=== PATIENT | female | born 1980 | race Caucasian/White ===

== ENCOUNTER 2020-11-02 11:00 | Day surgery (SDC) | payer MEDICAID, SELFPAY ==
[2020-11-02] VITALS (7 sets, daily range): BP systolic 150–165; BP diastolic 76–97; PULSE 66–84; RESP 16; TEMP 36.1–36.4; O2SAT 96–100; BMI 62.9
[2020-11-02 11:32] LABS: Internal QC Validated? YES +Cl - CLEAR BKGD; Pregnancy, Urine Negative Negative
[2020-11-02] MEDS: Lactated Ringers 1,000 ML 100 ML IV (11:41)
--- NOTE | 2020-11-02 12:18 | RAD_ITS ---
PROCEDURE: Caudal block. DATE OF EXAMINATION: 11/02/2020. INDICATION: Female, 40 years old. Chronic back pain. FLUOROSCOPY TIME (if supplied): (11 seconds) minutes/seconds. Single lateral view. RAD/Fluor Guidance for Spine Inj IMPRESSION: Intraoperative imaging provided for caudal block. Electronically Signed: Frederick Finney MD at 15:34 EDT , Service support ,
[2020-11-02] MEDS: MethylPREDNISolone Acetate 80 MG/ML Vial (12:23)
[2020-11-02] MEDS: 0.9% Normal Saline (Pres. free 10 ML Vial (12:23)
[2020-11-02] MEDS: Lidocaine 1% (5 ml sdv) 5 ML Vial (12:23)
[2020-11-02] MEDS: Bupivacaine 0.25% 30 ML Vial (12:23)
--- NOTE | 2020-11-02 12:52 | PCM.OPRPT ---
Report of Operation Date of Procedure: 11/02/20 Description of Surgical Findings:: PREOPERATIVE DIAGNOSIS: Lumbosacral radiculopathy, lumbosacral degenerative disc disease, lumbosacral spinal stenosis POSTOPERATIVE DIAGNOSIS: Lumbosacral radiculopathy, lumbosacral degenerative disc disease, lumbosacral spinal stenosis PROCEDURE PERFORMED: Diagnostic/therapeutic caudal epidural steroid injection. ANESTHESIA: MAC. BLOOD LOSS: Minimal. COMPLICATIONS: None. DESCRIPTION OF PROCEDURE: History and physical of today was reviewed. Risks and benefits of the procedure were explained. The patient understood and agreed to proceed. Informed consent was obtained. IV inserted per routine protocol. The patient was taken to the operating room and placed in the prone position with a pillow positioned underneath the abdomen. The lower back and tailbone area was prepped and draped in a sterile fashion using iodine x3. Under fluoroscopy guidance on a lateral view, the caudal space was identified. The skin and subcutaneous tissue was anesthetized with approximately 3 mL of 1% lidocaine using a 25-gauge regular needle. Under direct visualization with fluoroscopy, using a 22-gauge 3-1/2-inch spinal needle, the needle was advanced via the skin through the sacral hiatus. The tip of the needle was passed through the sacrococcygeal ligament and advanced to approximately S4 area. After negative aspiration of blood or CSF, a total of 3 mL of contrast was injected to confirm correct placement of the needle as well as cephalad spread. The spread was followed to approximately L5 area. After confirmation on AP as well as lateral view and repeated negative aspiration, a total of 15 mL of preservative-free 0.125% Marcaine with 80 mg of Depo-Medrol was injected easily. The needle was then removed intact. The patient experienced no sign or symptoms of intrathecal or intravascular injection. The patient experienced no paresthesia. The procedure was completed without any apparent difficulty or any complications. The patient appeared to tolerate it well. ASSESSMENT AND PLAN: This is a 40-year-old female with lumbosacral radiculopathy, lumbosacral degenerative disc disease, lumbosacral spinal stenosis status post diagnostic/therapeutic caudal epidural steroid injection patient will continue her current medications, patient will follow in approximately 2 weeks for reevaluation.
== END 2020-11-02 13:35 | disposition home or self-care (01) ==
LOC: SDC 11:03 → AC 11:03
PROVIDERS: Anesthesiology; PCP Physician Assistant Medical; Referring Provider Anesthesiology Pain Medicine; Visit Provider Anesthesiology Pain Medicine
PROC: 3E0S3BZ Introduction of Anesthetic Agent into Epidural Space, Percutaneous Approach (ICD-10-PCS; CPT 62282; principal; 2020-11-02 11:45)
DX: M48.07 Spinal stenosis, lumbosacral region (principal); M51.17 Intervertebral disc disorders with radiculopathy, lumbosacral region; G89.29 Other chronic pain; K21.9 Gastro-esophageal reflux disease without esophagitis; E11.9 Type 2 diabetes mellitus without complications; G47.33 Obstructive sleep apnea (adult) (pediatric); F32.9 Major depressive disorder, single episode, unspecified; F41.9 Anxiety disorder, unspecified; F17.200 Nicotine dependence, unspecified, uncomplicated; M46.96 Unspecified inflammatory spondylopathy, lumbar region; Z79.899 Other long term (current) drug therapy
CPT/HCPCS: 64483; 77003; 81025; J7120; J3490

== ENCOUNTER → 2021-01-04 09:43 | Outpatient (CLI) | payer MEDICAID, SELFPAY ==
[2020-11-02 11:36] VITALS: BMI 62.9
[2021-01-04 11:45] LABS: Internal QC Validated? YES +Cl - CLEAR BKGD
[2021-01-04 11:49] VITALS: BP 142/85; PULSE 88; RESP 16; TEMP 36.4; O2SAT 96; BMI 62.4
[2021-01-04 11:51] LABS: Pregnancy, Urine Negative Negative
[2021-01-04] MEDS: Lactated Ringers 1,000 ML 100 ML IV (12:03)
== END ==
LOC: SDC 11:18 → PAT 01-14 09:43
PROVIDERS: Anesthesiology; PCP Physician Assistant Medical; Referring Provider Anesthesiology Pain Medicine; Visit Provider Anesthesiology Pain Medicine
DX: Z01.818 Encounter for other preprocedural examination (principal); M54.5 Low back pain; M51.37 Other intervertebral disc degeneration, lumbosacral region; M47.817 Spondylosis without myelopathy or radiculopathy, lumbosacral region; M54.17 Radiculopathy, lumbosacral region; M46.96 Unspecified inflammatory spondylopathy, lumbar region; Z79.899 Other long term (current) drug therapy; E11.9 Type 2 diabetes mellitus without complications; I10 Essential (primary) hypertension; G47.33 Obstructive sleep apnea (adult) (pediatric)
CPT/HCPCS: 81025; J7120

== ENCOUNTER 2021-03-08 14:16 | Day surgery (SDC) | payer MEDICAID, SELFPAY ==
[2021-01-04 11:49] VITALS: BMI 62.4
[2021-03-08] VITALS (7 sets, daily range): BP systolic 125–158; BP diastolic 74–98; PULSE 73–87; RESP 16; TEMP 35.7–36.3; O2SAT 97–100; BMI 66.0
[2021-03-08] MEDS: Lactated Ringers 1,000 ML 100 ML IV (14:51)
--- NOTE | 2021-03-08 16:26 | RAD_ITS ---
STUDY: X-RAY - LUMBAR SPINE REASON FOR EXAM: Female, 40 years old. Intraoperative procedural pattern indentation images of nerve block. TECHNIQUE: 6 intraoperative digital documentation view(s) of the lumbar spine were obtained. COMPARISON: None FINDINGS: 6 intraoperative digital documentation views were obtained. RAD/L/S Spine Min 4 Views IMPRESSION: Intraoperative digital documentation views. Electronically Signed: Simone Park MD at 10:55 EDT , Service support ,
[2021-03-08] MEDS: MethylPREDNISolone Acetate 80 MG/ML Vial (16:30)
[2021-03-08] MEDS: Bupivacaine 0.25% 30 ML Vial (16:30)
[2021-03-08] MEDS: Lidocaine 1% (5 ml sdv) 5 ML Vial (16:30)
--- NOTE | 2021-03-08 16:56 | PCM.OPRPT ---
Report of Operation Date of Procedure: 03/08/21 Description of Surgical Findings:: Original Note: Report of Operation Date of Procedure: 03/08/21 Pre-Operative Diagnosis: Lumbosacral spondylosis, lumbosacral degenerative disc disease, lumbar facet arthropathy Post-Operative Diagnosis: Lumbosacral spondylosis, lumbosacral degenerative disc disease, lumbar facet arthropathy PROCEDURE PERFORMED: Bilateral diagnostic lumbar medial branch block, L4, L5, and S1. ANESTHESIA: MAC. BLOOD LOSS: Minimal. COMPLICATIONS: None. DESCRIPTION OF PROCEDURE: History and physical of today was reviewed. Risks and benefits of the procedure were explained. The patient understood and agreed to proceed. Informed consent was obtained. IV inserted per routine protocol. The patient was taken to the operating room and placed in the prone position with a pillow positioned underneath the abdomen. The lower back area was prepped and draped in a sterile fashion using iodine x3. Under fluoroscopy guidance on AP view, the L4 through S1 vertebral bodies were visualized. The skin and subcutaneous tissue was anesthetized with approximately 5 mL of 1% lidocaine using a 25-gauge regular needle. Under direct visualization with fluoroscopy, at approximately 25-degree angle, starting on the left L4, ending on the right L4, passing through the L5 and S1 bilaterally, using a 22-gauge 3-1/2-inch spinal needle, the needle was advanced via the skin. The tip of the needle was maneuvered and directed towards the superior medial gutter of the transverse process at the vicinity of the medial branch. Once tip of the needle was in contact with the bone, the needle was pulled approximately 2 mm off the bone. After negative aspiration for blood or CSF and confirmation on AP, oblique as well as lateral view, a total of 12 mL of preservative-free 0.25% Marcaine was injected in divided doses between those six levels. The needles were then removed intact. The patient experienced no sign or symptoms of intrathecal or intravascular injection. The patient experienced no paresthesia. The procedure was completed without any apparent difficulty or any complications. The patient appeared to tolerate it well. ASSESSMENT AND PLAN: This is a 40-year-old female with lumbosacral spondylosis, lumbosacral degenerative disease, lumbar facet arthropathy, status post bilateral diagnostic lumbar medial branch block at L4-S1, patient will continue her current medications, patient will follow in approximately 1 week for reevaluation.
== END 2021-03-08 17:47 | disposition home or self-care (01) ==
LOC: SDC 14:17 → AC 14:18
PROVIDERS: PCP Physician Assistant Medical; Referring Provider Anesthesiology Pain Medicine; Visit Provider Anesthesiology Pain Medicine
PROC: 3E0T3BZ Introduction of Anesthetic Agent into Peripheral Nerves and Plexi, Percutaneous Approach (ICD-10-PCS; CPT 64493; principal; 2021-03-08 15:25)
DX: M47.816 Spondylosis without myelopathy or radiculopathy, lumbar region (principal); M47.817 Spondylosis without myelopathy or radiculopathy, lumbosacral region; M51.37 Other intervertebral disc degeneration, lumbosacral region; G47.33 Obstructive sleep apnea (adult) (pediatric); F41.9 Anxiety disorder, unspecified; F32.9 Major depressive disorder, single episode, unspecified; K21.9 Gastro-esophageal reflux disease without esophagitis; E11.9 Type 2 diabetes mellitus without complications; I10 Essential (primary) hypertension; M46.96 Unspecified inflammatory spondylopathy, lumbar region; Z79.899 Other long term (current) drug therapy
CPT/HCPCS: 64493; 64494; 64495; 64483; 72110; J7120

== ENCOUNTER 2021-05-10 09:42 | Day surgery (SDC) | payer MEDICAID, SELFPAY ==
[2021-03-08 14:41] VITALS: BMI 66.0
--- NOTE | 2021-05-06 10:40 | PCM.HP.BLA ---
History and Physical Date of Admission: 05/10/21 Chief Complaint: 80% improvement in the right lumbar History of Present Illness: This is a 48 Y/O female who was seen and evaluated at our office today as a follow up. Pain: lower back Quality: Intermittent Region: pain in lower back is more centered Severity: occasional stabbing Timin Aggravated by: walking, standing, and sitting too long Relieved by: laying or sitting down Pain score (out of 10): 0/10 Other info: Patient is here for a follow up-post RFA in the right lumbar spine decreased her pain by 80%.Reports the lower back is doing much better since the ablation.States when she stands for to long or walks far she still feels the stabbing pain.States she was pleased with the result of the ablation.States this has helped more than any procedure has in the past. Review of Systems: Patient denies any recent fever, chills, headache, change in weight without trying, vision or hearing problems. No cp, sob, long, pnd, orthopnea, or peripheral edema.They note no lumps or swollen glands, no new rashes, changing moles, or change in bowel or bladder function. Mood has been good overall. Past Medical History: h/o Arthritis h/o hypertension h/o kidney stones h/o seizure disorder h/o foot fracture h/o rt knee injury 09/27/20 h/o diabetes s/p Appendectomy s/p Lithotripsy s/p Caesarean section x2 s/p pradeep carpal tunnel release Family History: ======== Structured Family History ======== Father: Heart disease, Cancer, Hypertension, Arthritis Mother: Hypertension, Cancer Brother: Hypertension, Diabetes mellitus Sister: Hypertension, Diabetes mellitus Grandparent: Heart disease Social History: [Tobacco: Never smoker Pipe Smoker: No Cigar Smoker: No Chewing Tobacco User: No Electronic Cigarette User: No] Living situation: Occupation: Customer Service Tobacco: Denies EtOH: Denies Rec. drugs: Denies Allergies: No Known Allergies Medications: 1) carBAMazepine 200 mg oral tablet, extended release, Take 1 tablet by mouth once daily 2) hydroCHLOROthiazide 25 mg oral tablet, Take 1 tablet by mouth once daily 3) Ibuprohm 200 mg oral tablet, prn 4) lisinopril 5 mg oral tablet, Take 1 tablet by mouth once daily 5) metFORMIN 500 mg oral tablet, Take 1 tablet by mouth once daily 6) Tylenol Extra Strength 500 mg oral tablet, Take 2 tablet by mouth every 8 hours prn Physical Examination: Wt: 321.6 lb Ht/Ln: 61 in BMI: 60.8 BP: 130/88 Pulse: 89 RR: 16 Temp: 96.8F Pain: 3 Well nourished and well developed in no acute distress. Alert and oriented to person, place and time. Affect is normal and appropriate. Mucosa pink and moist. Respirations even and unlabored. Neck is supple without significant lymphadenopathy or thyromegaly. Abdomen soft & non-tender. No HSM or masses appreciated. Extremities show no cyanosis, clubbing, or edema. Gait is Antalgic. Bilateral lumbar facet loading is positive. Lumbar paraspinal muscle tenderness. Lumbar ROM is limited due to pain. Motor and sensory exam is unchanged. Goals: Health Concerns: Assessment & Plan: # Degeneration of lumbosacral intervertebral disc (M51.37): # Lumbosacral spondylosis (M47.817): # Lumbosacral radiculopathy (M54.17): # Arthropathy of lumbar facet (M46.96): # Body Mass Index BMI 40+ - severely obese (Z68.41): # Long-term current use of drug therapy (Z79.899): Continue current medication regime. OARRS was reviewed today. UDS was reviewed, pt appears compliant SOAPP score is 2 Xray of the lumbar spine was reviewed with the pt today and they appear to understand. There are no signs of diversion or addiction with the pt, there is also no signs of abuse or misuse, continues to do well with their medications without any side effects, we will continue monitoring the pt closely. Reviewed with the pt today our opioid agreement and they appear to understand. PEG was reviewed today. Life style modifications were also discussed today and the pt appears to understand. Weight loss was recommended today through diet and exercise. The pt started the why weight program last week. Risks and benefits of the above meds were discussed with the pt and they appear to understand. The common side effects of the medications were discussed and all of their questions and concerns were answered and they appear to understand Discussed natural and expected course of this diagnosis and need to alert me if symptoms do not follow expected course, or if any worse. Pt is to continue with her PT and HEP. Pt has tried multiple modalities, will schedule the pt for a left radio frequency ablation L3-S1 under fluoroscopy as pt received excellent relief from 2 MBNB We have discussed the risks, benefits as well as alternatives of the procedure and the patient appears to understand and would like to proceed with the above plan. The above plan was discussed today with the pt in details and they appear to understand and agrees to continue with the plan.
--- NOTE | 2021-05-10 09:50 | SUR.PREOP ---
pt refused urine preg- she said she had an ablation
--- NOTE | 2021-05-10 10:00 | RAD_ITS ---
PROCEDURE: Medial branch block. DATE OF EXAMINATION: 05/10/2021. INDICATION: Female, 40 years old. Low back pain. FLUOROSCOPY TIME (if supplied): (24 seconds) minutes/seconds. 7 images were obtained. RAD/L/S Spine Min 4 Views IMPRESSION: Intraoperative imaging provided for bilateral L4-S1 medial branch block. Electronically Signed: Frederick Finney MD at 8:12 EDT , Service support ,
[2021-05-10 10:01] VITALS: BP 156/84; PULSE 77; RESP 18; TEMP 35.9; O2SAT 94; BMI 64.3
[2021-05-10] MEDS: Lactated Ringers 1,000 ML 100 ML IV (10:17)
[2021-05-10] MEDS: Lidocaine 1% (5 ml sdv) 5 ML Vial (10:50)
[2021-05-10] MEDS: Bupivacaine 0.25% 30 ML Vial (10:50)
[2021-05-10 11:00] VITALS: BP 119/82; BP 156/84; PULSE 79; RESP 18; TEMP 36.2; O2SAT 98
[2021-05-10 11:05] VITALS: BP 116/71; BP 156/84; PULSE 74; RESP 18; O2SAT 93
[2021-05-10 11:10] VITALS: BP 121/71; BP 156/84; PULSE 73; RESP 18; O2SAT 93
[2021-05-10 11:18] VITALS: BP 139/91; BP 156/84; PULSE 79; RESP 18; TEMP 36.4; O2SAT 100
[2021-05-10 11:45] VITALS: BP 156/84
--- NOTE | 2021-05-10 11:52 | OP.PCM_ITS ---
Report of Operation Date of Procedure: 05/10/21 Description of Surgical Findings:: Pre-Operative Diagnosis: Lumbosacral spondylosis, lumbosacral degenerative disc disease, lumbar facet arthropathy Post-Operative Diagnosis: Lumbosacral spondylosis, lumbosacral degenerative disc disease, lumbar facet arthropathy PROCEDURE PERFORMED: Bilateral diagnostic lumbar medial branch block, L4, L5, and S1. ANESTHESIA: MAC. BLOOD LOSS: Minimal. COMPLICATIONS: None. DESCRIPTION OF PROCEDURE: History and physical of today was reviewed. Risks and benefits of the procedure were explained. The patient understood and agreed to proceed. Informed consent was obtained. IV inserted per routine protocol. The patient was taken to the operating room and placed in the prone position with a pillow positioned underneath the abdomen. The lower back area was prepped and draped in a sterile fashion using iodine x3. Under fluoroscopy guidance on AP view, the L4 through S1 vertebral bodies were visualized. The skin and subcutaneous tissue was anesthetized with approximately 5 mL of 1% lidocaine using a 25-gauge regular needle. Under direct visualization with fluoroscopy, at approximately 25-degree angle, starting on the left L4, ending on the right L4, passing through the L5 and S1 bilaterally, using a 22-gauge 3-1/2-inch spinal needle, the needle was advanced via the skin. The tip of the needle was maneuvered and directed towards the superior medial gutter of the transverse process at the vicinity of the medial branch. Once tip of the needle was in contact with the bone, the needle was pulled approximately 2 mm off the bone. After negative aspiration for blood or CSF and confirmation on AP, obli que as well as lateral view, a total of 12 mL of preservative-free 0.25% Marcaine was injected in divided doses between those six levels. The needles were then removed intact. The patient experienced no sign or symptoms of intrathecal or intravascular injection. The patient experienced no paresthesia. The procedure was completed without any apparent difficulty or any complications. The patient appeared to tolerate it well. ASSESSMENT AND PLAN: This is a 40-year-old female with lumbosacral spondylosis, lumbosacral degenerative disease, lumbar facet arthropathy, status post bilateral diagnostic lumbar medial branch block at L4-S1, patient will continue her current medications, patient will follow in approximately 1 week for reevaluation.
== END 2021-05-10 11:48 | disposition home or self-care (01) ==
LOC: SDC 09:43 → AC 09:43
PROVIDERS: PCP Physician Assistant Medical; Referring Provider Anesthesiology Pain Medicine; Visit Provider Anesthesiology Pain Medicine
PROC: 3E0T3BZ Introduction of Anesthetic Agent into Peripheral Nerves and Plexi, Percutaneous Approach (ICD-10-PCS; CPT 64493; principal; 2021-05-10 10:55)
DX: M47.816 Spondylosis without myelopathy or radiculopathy, lumbar region (principal); M51.17 Intervertebral disc disorders with radiculopathy, lumbosacral region; M47.817 Spondylosis without myelopathy or radiculopathy, lumbosacral region; E11.9 Type 2 diabetes mellitus without complications; G40.909 Epilepsy, unspecified, not intractable, without status epilepticus; I10 Essential (primary) hypertension; E66.01 Morbid (severe) obesity due to excess calories; Z68.41 Body mass index [BMI] 40.0-44.9, adult; Z79.84 Long term (current) use of oral hypoglycemic drugs; Z82.49 Family history of ischemic heart disease and other diseases of the circulatory system; Z82.61 Family history of arthritis; Z83.3 Family history of diabetes mellitus; Z87.442 Personal history of urinary calculi
CPT/HCPCS: 64493; 64494; 64495; 64483; 72110; J7120

== ENCOUNTER 2022-04-04 09:12 | Day surgery (SDC) | payer MEDICAID, SELFPAY ==
[2022-04-04] VITALS (7 sets, daily range): BP systolic 148–157; BP diastolic 50–106; PULSE 89–96; RESP 18–20; TEMP 36.2–36.4; O2SAT 93–97; BMI 72.1
[2022-04-04] MEDS: Lactated Ringers 1,000 ML 15 ML IV (09:20)
[2022-04-04 09:43] LABS: Internal QC Validated? YES +Cl - CLEAR BKGD; Pregnancy, Urine Negative Negative
[2022-04-04] MEDS: 0.9% Normal Saline (Pres. free 10 ML Vial (10:30)
[2022-04-04] MEDS: Bupivacaine 0.25% 30 ML Vial (10:30)
[2022-04-04] MEDS: MethylPREDNISolone Acetate 80 MG/ML Vial (10:30)
[2022-04-04] MEDS: Lidocaine 1% (5 ml sdv) 5 ML Vial (10:31)
--- NOTE | 2022-04-04 10:50 | RAD_ITS ---
INDICATION: Caudal epidural block EXAMINATION/TECHNIQUE: X-RAY - IR Fluoro Guide Injection Spine COMPARISON: Lumbar spine images obtained on 05/10/2021. FLUOROSCOPY TIME: 0:14 minutes FINDINGS: 2 spot fluoroscopic images were obtained intraoperatively. Images demonstrate the needle placement for caudal epidural block No radiologist was present for the procedure, please refer to operative report for details. RAD/Fluor Guidance for Spine Inj IMPRESSION: Please refer to operative report for details. Electronically Signed: Ward Mg MD at 7:54 EDT ,
--- NOTE | 2022-04-04 12:15 | OP.PCM_ITS ---
Report of Operation Date of Procedure: 04/04/22 Pre-Operative Diagnosis: Lumbosacral radiculopathy, lumbosacral degenerative di sc disease, lumbosacral spinal stenosis Post-Operative Diagnosis: Lumbosacral radiculopathy, lumbosacral degenerative disc disease, lumbosacral spinal stenosis Surgery/Procedure Performed:: Caudal epidural steroid injection under fluoroscopic guidance Type of Anesthesia: MAC Estimated Blood Loss (mL): Minimal Description of Procedure: DESCRIPTION OF PROCEDURE: History and physical of today was reviewed. Risks and benefits of the procedure were explained. The patient understood and agreed to proceed. Informed consent was obtained. IV inserted per routine protocol. The patient was taken to the operating room and placed in the prone position with a pillow positioned underneath the abdomen. The lower back and tailbone area was prepped and draped in a sterile fashion using iodine x3. Under fluoroscopy guidance on a lateral view, the caudal space was identified. The skin and subcutaneous tissue was anesthetized with approximately 3 mL of 1% lidocaine using a 25-gauge regular needle. Under direct visualization with fluoroscopy, using a 22-gauge 3-1/2-inch spinal needle, the needle was advanced via the skin through the sacral hiatus. The tip of the needle was passed through the sacrococcygeal ligament and advanced to approximately S4 area. After negative aspiration of blood or CSF, a total of 3 mL of contrast was injected to confirm correct placement of the needle as well as cephalad spread. The spread was followed to approximately L5 area. After confirmation on AP as well as lateral view and repeated negative aspiration, a total of 15 mL of preservative-free 0.125% Marcaine with 80 mg of Depo-Medrol was injected easily. The needle was then removed intact. The patient experienced no sign or symptoms of intrathecal or intravascular injection. The patient experienced no paresthesia. The procedure was completed without any apparent difficulty or any complications. The patient appeared to tolerate it well. ASSESSMENT AND PLAN: This is a 41-year-old female with lumbosacral radiculopathy, lumbosacral degenerative disc disease, lumbosacral spinal stenosis status post caudal epidural steroid injection, patient will continue her current medications, patient will follow in approximately 2 weeks for reevaluation. Complications None
== END 2022-04-04 11:15 | disposition home or self-care (01) ==
LOC: SDC 09:13 → AC 09:14
PROVIDERS: Anesthesiology; PCP Physician Assistant Medical; Referring Provider Anesthesiology Pain Medicine; Visit Provider Anesthesiology Pain Medicine
PROC: 3E0S3BZ Introduction of Anesthetic Agent into Epidural Space, Percutaneous Approach (ICD-10-PCS; CPT 62282; principal; 2022-04-04 10:45)
DX: M48.07 Spinal stenosis, lumbosacral region (principal); M51.17 Intervertebral disc disorders with radiculopathy, lumbosacral region; F17.210 Nicotine dependence, cigarettes, uncomplicated
CPT/HCPCS: 62323; 64483; 77003; 81025; J7120; J3490

== ENCOUNTER 2022-06-27 08:26 | Day surgery (SDC) | payer MEDICAID, SELFPAY ==
[2022-06-27 08:49] VITALS: BP 178/115; PULSE 100; RESP 18; TEMP 36.2; O2SAT 94; BMI 74.9
[2022-06-27] MEDS: Bupivacaine 0.25% 30 ML Vial (08:56)
[2022-06-27] MEDS: MethylPREDNISolone Acetate 80 MG/ML Vial (08:56)
[2022-06-27] MEDS: Lactated Ringers 1,000 ML 15 ML IV (08:58)
--- NOTE | 2022-06-27 09:08 | RAD_ITS ---
PROCEDURE: Bilateral L4-S1 medial branch nerve block. DATE OF EXAMINATION: 06/27/2022. INDICATION: Female, 41 years old. Low back pain. FLUOROSCOPY TIME (if supplied): (38 seconds) minutes/seconds. 7 images were obtained. Intraoperative imaging provided for bilateral L4-S1 medial branch nerve block. RAD/L/S Spine Min 4 Views IMPRESSION: Intraoperative imaging provided for bilateral L4-S1 medial branch nerve block Electronically Signed: Frederick Finney MD at 14:29 EST ,
[2022-06-27] MEDS: Lidocaine 1% (5 ml sdv) 5 ML Vial (09:16)
[2022-06-27 09:26] VITALS: BP 136/98; BP 178/99; PULSE 89; RESP 18; TEMP 36.2; O2SAT 95
[2022-06-27 09:30] VITALS: BP 139/101; BP 178/99; PULSE 92; RESP 18; O2SAT 97
[2022-06-27 09:35] VITALS: BP 146/103; BP 178/99; PULSE 91; RESP 18; O2SAT 94
[2022-06-27 09:41] VITALS: BP 154/101; BP 178/99; PULSE 87; RESP 18; TEMP 36.6; O2SAT 96
[2022-06-27 10:01] VITALS: BP 178/99
--- NOTE | 2022-06-27 10:49 | OP.PCM_ITS ---
Report of Operation Date of Procedure: 06/27/22 Description of Surgical Findings:: Pre-Operative Diagnosis: Lumbosacral spondylosis, lumbosacral degenerative disc disease, lumbar facet arthropathy Post-Operative Diagnosis: Lumbosacral spondylosis, lumbosacral degenerative disc disease, lumbar facet arthropathy PROCEDURE PERFORMED:? Bilateral lumbar medial branch block at, L4, L5, and S1. ANESTHESIA:? MAC. BLOOD LOSS:? Minimal. COMPLICATIONS:? None. DESCRIPTION OF PROCEDURE:? History and physical of today was reviewed.? Risks and benefits of the procedure were explained.? The patient understood and agreed to proceed.? Informed consent was obtained.? IV inserted per routine protocol.? The patient was taken to the operating room and placed in the prone position with a pillow positioned underneath the abdomen.? The lower back area was prepped and draped in a sterile fashion using iodine x3.? Under fluoroscopy guidance on AP view, the L4 through S1 vertebral bodies were visualized.? The skin and subcutaneous tissue was anesthetized with approximately 5 mL of 1% lidocaine using a 25-gauge regular needle.? Under direct visualization with fluoroscopy, at approximately 25-degree angle, starting on the left L4, ending on the right L4, passing through the L5 and S1 bilaterally, using a 22-gauge 3-1/2-inch spinal needle, the needle was advanced via the skin.? The tip of the needle was maneuvered and directed towards the superior medial gutter of the transverse process at the vicinity of the medial branch.? Once tip of the needle was in contact with the bone, the needle was pulled approximately 2 mm off the bone.? After negative aspiration for blood or CSF and confirmation on AP, obliq ue as well as lateral view, a total of 12 mL of preservative-free 0.25% Marcaine with 80 mg of Depo-Medrol was injected in divided doses between those six levels.? The needles were then removed intact.? The patient experienced no sign or symptoms of intrathecal or intravascular injection.? The patient experienced no paresthesia.? The procedure was completed without any apparent difficulty or any complications.? The patient appeared to tolerate it well. ASSESSMENT AND PLAN:? This is a 41-year-old female with lumbosacral spondylosis, lumbosacral degener ative disc disease, lumbar facet arthropathy status post bilateral lumbar medial branch block at L4-S1, patient will continue current medications, patient will follow in approximately 1 to 2 weeks for reevaluation.
== END 2022-06-27 10:04 | disposition home or self-care (01) ==
LOC: SDC 08:27 → AC 08:29
PROVIDERS: PCP Physician Assistant Medical; Referring Provider Anesthesiology Pain Medicine; Visit Provider Anesthesiology Pain Medicine
PROC: 3E0S3BZ Introduction of Anesthetic Agent into Epidural Space, Percutaneous Approach (ICD-10-PCS; CPT 62322; principal; 2022-06-27 09:25)
DX: M47.816 Spondylosis without myelopathy or radiculopathy, lumbar region (principal); M47.817 Spondylosis without myelopathy or radiculopathy, lumbosacral region; M51.37 Other intervertebral disc degeneration, lumbosacral region; I10 Essential (primary) hypertension
CPT/HCPCS: 64494; 64493; 64483; 72110; J7120

== ENCOUNTER 2022-11-07 07:41 | Day surgery (SDC) | payer MEDICAID, SELFPAY ==
--- NOTE | 2022-11-07 08:00 | RAD_ITS ---
PROCEDURE: Right L4-S1 radiofrequency ablation. DATE OF EXAMINATION: November 07, 2022. INDICATION: Female, 42 years old. Chronic back pain. FLUOROSCOPY TIME (if supplied): (30.6 seconds) minutes/seconds RADIATION DOSAGE (If Supplied By Facility): ( 25.84 ) mGycm Intraoperative imaging provided for right L4-S1 radiofrequency ablation. RAD/Lumbar Spine 2 or 3 Views IMPRESSION: Intraoperative imaging provided for right L4-S1 radiofrequency ablation. Electronically Signed: Frederick Finney MD at 10:13 EDT ,
[2022-11-07 08:01] LABS: Internal QC Validated? YES +Cl - CLEAR BKGD; Pregnancy, Urine Negative Negative
[2022-11-07 08:10] VITALS: BP 145/93; PULSE 100; RESP 22; TEMP 36.2; O2SAT 93; BMI 74.7
[2022-11-07] MEDS: Lactated Ringers 1,000 ML 15 ML IV (08:10)
[2022-11-07] MEDS: Lidocaine 1% (30 ml sdv) 30 ML Vial (08:36)
[2022-11-07] MEDS: MethylPREDNISolone Acetate 40 MG/ML Vial IM (08:36)
[2022-11-07] MEDS: Bupivacaine 0.25% 30 ML Vial (08:36)
--- NOTE | 2022-11-07 08:49 | PCM.OPRPT ---
Report of Operation Date of Procedure: 11/07/22 Pre-Operative Diagnosis: Lumbosacral spondylosis, lumbosacral degenerative disc disease, lumbar facet arthropathy Post-Operative Diagnosis: Lumbosacral spondylosis, lumbosacral degenerative disc disease, lumbar facet arthropathy Surgery/Procedure Performed:: Right-sided lumbar radiofrequency ablation of the medial branch L4, L5, S1 Type of Anesthesia: MAC Estimated Blood Loss (mL): Minimal Description of Procedure: History and physical today was reviewed. Risks and benefits of procedure explained. The patient understood, agreed to the procedure and informed consent was obtained. IV inserted per routine protocol. The patient was taken to the operating room, placed in the prone position with a pillow positioned underneath the abdomen. The right side of the lower back was prepped and draped in a sterile fashion using iodine x 3. Under fluoroscopy guidance, on an oblique view, the L3 through S1 vertebral bodies were visualized. The skin and subcutaneous tissue was anesthetized with approximately 10 mL of 1% lidocaine using a 25-gauge regular needle. Under direct visualization with fluoroscopy at approximately 25-degree angle, starting on the right L3, ending on the right S1 passing through the L4-L5 using a 20-gauge 15 cm with a 10 mm curved active tip radiofrequency ablation needle the needle passed through the skin. The tip of the needle was maneuvered and directed towards the superior and medial gutter of the transverse process at the vicinity of the medial branch. Once the tip of the needle was in contact with the bone, the needle pulled approximately 2 mm up the bone. The stylet of each needle was then removed. After negative aspiration of blood with CSF and confirmation of AP as well as oblique view, radiofrequency ablation probe was then inserted at each level. Impedance was then recorded at L3 to be 349, at L4 215, at L5 318, at S1 382 ohm. Motor-evoked potential was then initiated to 1.5 volt without any motor response at each corresponding level. The probe was then removed intact and a total of 6 mL preservative-free 1% lidocaine was injected in divided doses between those 4 levels after negative aspiration of blood with CSF. The radiofrequency ablation probe was then reinserted after confirmation of AP, oblique as well as lateral view. Radiofrequency ablation was then initiated to 80 degrees Celsius for 90 seconds at each level. Once concluded, the probe was then removed intact and a total of 6 mL of preservative-free 0.25% Marcaine with 40 mg Depo-Medrol was injected in divided doses between those 4 levels. The needles were then removed intact. The patient experienced no signs or symptoms of intrathecal, intravascular injection. The patient experienced no paraesthesia. The procedure was completed without any apparent difficulty, any complication. The patient appeared to tolerate well. Sensory as well as motor exam was unchanged from prior to procedure. ASSESSMENT AND PLAN: This is a 42-year-old female with lumbosacral spondylosis, lumbosacral degenerative disc disease, lumbar facet arthropathy, status post right-sided radiofrequency ablation of the medial branch L4 through S1. The patient will continue her current medications. The patient will follow up in approximately 2 weeks for reevaluation. Complications None
[2022-11-07 08:54] VITALS: BP 138/73; BP 145/93; PULSE 99; RESP 16; TEMP 36.4; O2SAT 94
[2022-11-07 09:00] VITALS: BP 135/75; BP 145/93; PULSE 95; RESP 16; O2SAT 95
[2022-11-07 09:05] VITALS: BP 139/86; BP 145/93; PULSE 87; RESP 16; O2SAT 92
[2022-11-07 09:10] VITALS: BP 145/93; BP 149/86; PULSE 81; RESP 16; TEMP 36.5; O2SAT 97
[2022-11-07 09:29] VITALS: BP 145/93
== END 2022-11-07 09:35 | disposition home or self-care (01) ==
LOC: SDC 07:43 → AC 07:44
PROVIDERS: Anesthesiology; PCP Physician Assistant Medical; Referring Provider Anesthesiology Pain Medicine; Visit Provider Anesthesiology Pain Medicine
PROC: (CPT 64635; principal; 2022-11-07 08:55)
DX: M47.816 Spondylosis without myelopathy or radiculopathy, lumbar region (principal); M47.817 Spondylosis without myelopathy or radiculopathy, lumbosacral region; M51.37 Other intervertebral disc degeneration, lumbosacral region; I10 Essential (primary) hypertension; K21.9 Gastro-esophageal reflux disease without esophagitis; F32.A Depression, unspecified; F12.90 Cannabis use, unspecified, uncomplicated; F17.200 Nicotine dependence, unspecified, uncomplicated
CPT/HCPCS: 64635; 72100; 76000; 81025

== ENCOUNTER 2022-12-19 09:33 | Day surgery (SDC) | payer MEDICAID, SELFPAY ==
[2022-12-19] VITALS (8 sets, daily range): BP systolic 100–157; BP diastolic 78–104; PULSE 103–109; RESP 16–22; TEMP 35.9–36.3; O2SAT 92–97; BMI 78.3
[2022-12-19 10:01] LABS: Internal QC Validated? YES +Cl - CLEAR BKGD; Pregnancy, Urine Negative Negative
[2022-12-19] MEDS: Ipratropium/Albuterol Sulfate 3 ML AMPUL.NEB INHALATION (10:14)
[2022-12-19] MEDS: Lactated Ringers 1,000 ML 15 ML IV (10:15)
--- NOTE | 2022-12-19 10:40 | RAD_ITS ---
PROCEDURE: Left L4-S1 radiofrequency ablation. DATE OF EXAMINATION: December 19, 2022. INDICATION: Female, 42 years old. Chronic low back pain. FLUOROSCOPY TIME (if supplied): (33 seconds) minutes/seconds. 31.1 mGy. 7 spot images were submitted. RAD/Lumbar Spine 2 or 3 Views IMPRESSION: Intraoperative imaging provided for left L4-S1 radiofrequency ablation. Electronically Signed: Frederick Finney MD at 12:57 EDT ,
[2022-12-19] MEDS: MethylPREDNISolone Acetate 40 MG/ML Vial IM (10:51)
[2022-12-19] MEDS: Lidocaine 1% (30 ml sdv) 30 ML Vial (10:52)
--- NOTE | 2022-12-19 10:58 | PCM.OPRPT ---
Report of Operation Date of Procedure: 12/19/22 Pre-Operative Diagnosis: Lumbosacral spondylosis, lumbosacral degenerative disc disease, lumbar facet arthropathy Post-Operative Diagnosis: Lumbosacral spondylosis, lumbosacral degenerative disc disease, lumbar facet arthropathy Surgery/Procedure Performed:: Left-sided lumbar radiofrequency ablation of the medial branch L4, L5, S1 Type of Anesthesia: MAC Estimated Blood Loss (mL): Minimal Description of Procedure: History and physical today was reviewed. Risks and benefits of procedure explained. The patient understood, agreed to the procedure and informed consent was obtained. IV inserted per routine protocol. The patient was taken to the operating room, placed in the prone position with a pillow positioned underneath the abdomen. The left side of the lower back was prepped and draped in a sterile fashion using iodine x 3. Under fluoroscopy guidance, on an oblique view, the L3 through S1 vertebral bodies were visualized. The skin and subcutaneous tissue was anesthetized with approximately 10 mL of 1% lidocaine using a 25-gauge regular needle. Under direct visualization with fluoroscopy at approximately 25-degree angle, starting on the left L3, ending on the left S1 passing through the L4-L5 using a 20-gauge 15 cm with a 10 mm curved active tip radiofrequency ablation needle the needle passed through the skin. The tip of the needle was maneuvered and directed towards the superior and medial gutter of the transverse process at the vicinity of the medial branch. Once the tip of the needle was in contact with the bone, the needle pulled approximately 2 mm up the bone. The stylet of each needle was then removed. After negative aspiration of blood with CSF and confirmation of AP as well as oblique view, radiofrequency ablation probe was then inserted at each level. Impedance was then recorded at L3 to be 260, at L4 313, at L5 261, at S1 288 ohm. Motor-evoked potential was then initiated to 1.5 volt without any motor response at each corresponding level. The probe was then removed intact and a total of 6 mL preservative-free 1% lidocaine was injected in divided doses between those 4 levels after negative aspiration of blood with CSF. The radiofrequency ablation probe was then reinserted after confirmation of AP, oblique as well as lateral view. Radiofrequency ablation was then initiated to 80 degrees Celsius for 90 seconds at each level. Once concluded, the probe was then removed intact and a total of 6 mL of preservative-free 0.25% Marcaine with 40 mg Depo-Medrol was injected in divided doses between those 4 levels. The needles were then removed intact. The patient experienced no signs or symptoms of intrathecal, intravascular injection. The patient experienced no paraesthesia. The procedure was completed without any apparent difficulty, any complication. The patient appeared to tolerate well. Sensory as well as motor exam was unchanged from prior to procedure. ASSESSMENT AND PLAN: This is a 42-year-old female with lumbosacral spondylosis, lumbosacral degenerative disc disease, lumbar facet arthropathy, status post left-sided lumbar radiofrequency ablation of the medial branch L4 through S1. The patient will continue her current medications. The patient will follow up in approximately 2 weeks for reevaluation. Complications None
--- NOTE | 2022-12-19 11:12 | SUR.PHASEI ---
Desats to mid-80's% when falls asleep, comes back up into 90's when awake. Has THAI, prescribed CPAP at home, educated patient she should wear at home today when napping or in bed.
== END 2022-12-19 11:54 | disposition home or self-care (01) ==
LOC: SDC 09:35 → AC 09:35
PROVIDERS: Anesthesiology; PCP Physician Assistant Medical; Referring Provider Anesthesiology Pain Medicine; Visit Provider Anesthesiology Pain Medicine
PROC: (CPT 64635; principal; 2022-12-19 11:05)
DX: M47.816 Spondylosis without myelopathy or radiculopathy, lumbar region (principal); M46.96 Unspecified inflammatory spondylopathy, lumbar region; E11.9 Type 2 diabetes mellitus without complications; M51.37 Other intervertebral disc degeneration, lumbosacral region; M47.817 Spondylosis without myelopathy or radiculopathy, lumbosacral region; F41.9 Anxiety disorder, unspecified; F32.A Depression, unspecified; K21.9 Gastro-esophageal reflux disease without esophagitis; F17.210 Nicotine dependence, cigarettes, uncomplicated; I10 Essential (primary) hypertension; Z79.899 Other long term (current) drug therapy
CPT/HCPCS: 64635; 72100; 76000; 81025; 94640; J7120